=== PATIENT | female | born 1980 | race Caucasian/White ===

== ENCOUNTER 2019-05-22 22:04 | Outpatient (REF) | payer BC, SELFPAY ==
[2019-05-22 21:52] LABS: ALT 22 U/L (14-59); AST 14 U/L (15-37); Albumin 3.5 g/dL (3.4-5.0); Alkaline Phosphatase 61 U/L (46-116); Anion Gap 7.1 mmol/L (3-11); BUN 17 mg/dL (7-18); Bilirubin, Total 0.3 mg/dL (0.2-1.0); CO2 26.9 mmol/L (21.0-32.0); CREATININE 0.72 mg/dL (0.55-1.02); Calcium 8.9 mg/dL (8.5-10.1); Calculated LDL 123 mg/dL (<100); Chloride 106 mmol/L (98-107); Cholesterol 202 mg/dL (<200); Glucose 81 mg/dL (74-106); HCT 37.7 % (36.0-46.0); HDL Cholesterol 48 mg/dL (40-60); HGB 12.8 g/dL (12.0-15.5); Mean Corpuscular Volume 88.5 fL (80-95); Platelet Count 278 x1000/uL (130-400); Potassium 4.6 mmol/L (3.5-5.1); RBC 4.26 m/cumm (4.00-5.20); RBC Distribution Width 13.5 % (11.7-14.6); Sodium 140 mmol/L (136-145); Total Protein 6.5 g/dL (6.4-8.2); Triglyceride 157 mg/dL (<150); White Blood Cell Count 6.55 k/cumm (4.4-10.8)
[2019-05-22 22:24] LABS: Hemoglobin A1C 5.2 % (3.8-5.6)
== END 2019-05-22 22:24 ==
LOC: NCHCN 22:04
PROVIDERS: Visit Provider Nurse Practitioner Family
DX: Z00.00 Encounter for general adult medical examination without abnormal findings (principal); E66.9 Obesity, unspecified
CPT/HCPCS: 80053; 80061; 85027; 83036

== ENCOUNTER 2019-07-07 11:52 | Outpatient (REF) | payer BC, SELFPAY ==
[2019-07-07 21:41] LABS: ALT 23 U/L (14-59); AST 17 U/L (15-37); Albumin 3.8 g/dL (3.4-5.0); Alkaline Phosphatase 61 U/L (46-116); Anion Gap 8.9 mmol/L (3-11); BUN 19 mg/dL (7-18); Bilirubin, Total 0.4 mg/dL (0.2-1.0); CO2 26.1 mmol/L (21.0-32.0); Calcium 9.1 mg/dL (8.5-10.1); Chloride 104 mmol/L (98-107); Glucose 86 mg/dL (74-106); Potassium 4.5 mmol/L (3.5-5.1); Sodium 139 mmol/L (136-145)
== END 2019-07-07 12:12 ==
LOC: NCHCN 11:52
PROVIDERS: Visit Provider Nurse Practitioner Family
DX: Z51.81 Encounter for therapeutic drug level monitoring (principal)
CPT/HCPCS: 80053

== ENCOUNTER 2019-08-07 08:29 | Outpatient (REF) | payer BC, SELFPAY ==
[2019-08-07 21:15] LABS: ALT 23 U/L (14-59); AST 16 U/L (15-37); Albumin 3.7 g/dL (3.4-5.0); Alkaline Phosphatase 60 U/L (46-116); Anion Gap 8.1 mmol/L (3-11); BUN 18 mg/dL (7-18); Bilirubin, Total 0.4 mg/dL (0.2-1.0); CO2 26.9 mmol/L (21.0-32.0); CREATININE 0.93 mg/dL (0.55-1.02); Calcium 8.8 mg/dL (8.5-10.1); Chloride 103 mmol/L (98-107); Glucose 91 mg/dL (74-106); Potassium 4.2 mmol/L (3.5-5.1); Sodium 138 mmol/L (136-145); Total Protein 6.8 g/dL (6.4-8.2)
== END 2019-08-07 08:49 ==
LOC: NCHCN 08:29
PROVIDERS: PCP Nurse Practitioner Family; Visit Provider Nurse Practitioner Family
DX: Z51.81 Encounter for therapeutic drug level monitoring (principal)
CPT/HCPCS: 80053

== ENCOUNTER 2020-06-28 10:10 | Outpatient (REF) | payer OTHER, SELFPAY ==
[2020-06-28 13:43] LABS: ALT 23 U/L (14-59); AST 17 U/L (15-37); Albumin 3.4 g/dL (3.4-5.0); Alkaline Phosphatase 57 U/L (46-116); Anion Gap 9.3 mmol/L (3-11); BUN 16 mg/dL (7-18); Bilirubin, Total 0.4 mg/dL (0.2-1.0); CO2 24.7 mmol/L (21.0-32.0); CREATININE 0.7 mg/dL (0.55-1.02); Calcium 8.5 mg/dL (8.5-10.1); Calculated LDL 124 mg/dL (<100); Chloride 105 mmol/L (98-107); Cholesterol 195 mg/dL (<200); Glucose 92 mg/dL (74-106); HDL Cholesterol 52 mg/dL (40-60); Potassium 4.2 mmol/L (3.5-5.1); Sodium 139 mmol/L (136-145); Total Protein 6.7 g/dL (6.4-8.2); Triglyceride 98 mg/dL (<150)
== END 2020-06-28 10:11 | disposition home or self-care (01) ==
LOC: NCHCN 10:10
PROVIDERS: PCP Nurse Practitioner Family; Visit Provider Nurse Practitioner Family
DX: Z00.00 Encounter for general adult medical examination without abnormal findings (principal); Z13.220 Encounter for screening for lipoid disorders; Z13.228 Encounter for screening for other metabolic disorders
CPT/HCPCS: 80053; 80061

== ENCOUNTER 2022-06-16 10:25 | Outpatient (REF) | payer OTHER, SELFPAY ==
--- NOTE | 2022-06-16 09:00 | PAPFT_PTH ---
PATIENT: Nancy Londono LOC: [facility] U#:[id number] AGE/SX: 41/F ROOM: RE06/16/[address]: Halley Dupree : 1980 BED: DIS: 06/16/2022 SPEC #: [id number] RECD: 06/16/22 18:12 STATUS: MANDO REQ #: [id number] VANESSA: 06/16/22 09:[address]: Halley Dupree DEPT: [facility] Cytology RECD BY: Emma Harrison ENTERED: 06/16/22 18:13 SP TYPE: PAPFT MARCELOHR DR: Sally Arenas Tissues: 1 - CX/ENDOCX FOR PAP SMEARS Procedures: PAP THIN PREP/[facility] Screening HPV DNA PROBE Comments: [id number]
== END 2022-06-16 10:26 | disposition home or self-care (01) ==
LOC: NCHCN 10:25
PROVIDERS: PCP Nurse Practitioner Family; Visit Provider Family Medicine
DX: Z12.4 Encounter for screening for malignant neoplasm of cervix (principal); Z11.51 Encounter for screening for human papillomavirus (HPV); Z00.00 Encounter for general adult medical examination without abnormal findings
CPT/HCPCS: 88142; 87624

== ENCOUNTER 2022-06-22 13:50 | Outpatient (REF) | payer OTHER, SELFPAY ==
[2022-06-22 15:27] LABS: HCT 39.7 % (36.0-46.0); HGB 13.5 g/dL (11.2-15.7); MCH 29.6 pg (27.0-33.0); MCV 87 fL (80-95); MPV 10.3 fL (8.0-11.0); Platelet Count 264 10^3/uL (130-400); RBC 4.56 10^6/uL (3.93-5.22); RDW 12.8 % (11.7-14.6); WBC 6.22 10^3/uL (4.4-10.8)
== END 2022-06-22 13:51 | disposition home or self-care (01) ==
LOC: NCHCN 13:50
PROVIDERS: PCP Nurse Practitioner Family; Visit Provider Family Medicine
DX: N93.9 Abnormal uterine and vaginal bleeding, unspecified (principal)
CPT/HCPCS: 85027

== ENCOUNTER 2023-06-19 10:14 | Outpatient (REF) | payer OTHER, SELFPAY ==
[2023-06-19 15:39] LABS: Calculated LDL 144 mg/dL (<100); Cholesterol 228 mg/dL (<200); Ferritin 61 ng/mL (8-252); HDL Cholesterol 54 mg/dL (40-60); Triglyceride 154 mg/dL (<150)
[2023-06-19 16:08] LABS: Iron 87 ug/dL (50-170); Total Iron Binding Capacity 277 ug/dL (250-450); Transferrin Sat 31 % (15-50)
== END 2023-06-19 10:15 | disposition home or self-care (01) ==
LOC: NCHCN 10:14
PROVIDERS: PCP Nurse Practitioner Family; Visit Provider Family Medicine
DX: G25.81 Restless legs syndrome (principal); Z00.00 Encounter for general adult medical examination without abnormal findings
CPT/HCPCS: 80061; 82728; 83036; 83540; 83550